=== PATIENT | female | born 1950 | race Caucasian/White ===

== ENCOUNTER 2018-12-12 06:57 | Day surgery (SDC) | payer OTHER ==
[~2018-12-12] VITALS: Ht 165.1 cm; Wt 70.3 kg
[~2018-12-12 06:57] MED LIST: IBUP400T21 PO; OME20T PO
[2018-12-12] MEDS ORDERED: LIDOCAINE 2%HCL (LOCAL ANESTH.) INJ 20ML MDV ONE (07:09)
[2018-12-12] MEDS ORDERED: IODIXANOL 320MG/ML 100ML BTL IV ONE (07:09)
[2018-12-12] MEDS ORDERED: fentaNYL CITRATE 100 MCG/2 ML VL ONE (07:44)
[2018-12-12] MEDS ORDERED: VERAPAMIL 2.5MG/ML INJ 2ML VIAL IV ONE (07:44)
[2018-12-12] MEDS ORDERED: ANGIOMAX 250 MG VIAL IV ONE (07:44)
[2018-12-12] MEDS ORDERED: SODIUM CHL 0.9% 0 ML ONE (07:45)
[2018-12-12] MEDS ORDERED: MIDAZOLAM HCL 1MG/1ML-2 ML VIAL ONE (07:45)
[2018-12-12] MEDS ORDERED: HEPARIN SODIUM (PORCINE) 5000 UNITS/ML 1ML VIAL ONE (08:27)
== END 2018-12-12 10:10 | disposition home or self-care (01) ==
LOC: CATH 06:57
PROVIDERS: ATTEND Internal Medicine
DX: I25.10 Atherosclerotic heart disease of native coronary artery without angina pectoris (principal); M79.7 Fibromyalgia; R06.02 Shortness of breath; R07.9 Chest pain, unspecified; Z79.899 Other long term (current) drug therapy; Z88.8 Allergy status to other drugs, medicaments and biological substances; Z88.2 Allergy status to sulfonamides; Z90.710 Acquired absence of both cervix and uterus; Z98.890 Other specified postprocedural states
CPT/HCPCS: 93005; 93458; A6257; C1769; C1894; J1644; J2250; J3010; J7030; Q9967; 99152